=== PATIENT | female | born 1995 ===

== ENCOUNTER 2016-04-11 14:31 | Emergency (ER) | payer MEDICAID, OTHER ==
--- NOTE | 2016-04-11 15:57 | RAD ---
LEFT FINGER 3 VIEWS HISTORY: Dog bite of the left third digit. COMPARISONS: None. TECHNIQUE: Frontal, lateral, and oblique views of the left third digit ALIGNMENT: Grossly unremarkable. FRACTURE: No displaced acute fracture. SOFT TISSUES: Minor soft tissue swelling without obvious soft tissue gas. RADIOOPAQUE FOREIGN BODY: None. IMPRESSION: No gross malalignment or displaced acute fracture noted. Minor soft tissue swelling without obvious soft tissue gas.
== END 2016-04-11 16:06 | disposition home or self-care (01) ==
LOC: ED 14:31
DX: S61.253A Open bite of left middle finger without damage to nail, initial encounter (principal); J45.909 Unspecified asthma, uncomplicated; W54.0XXA Bitten by dog, initial encounter

== ENCOUNTER 2016-07-15 23:43 | Emergency (ER) | payer OTHER ==
[2016-07-16] MEDS ORDERED: IBUPROFEN 600 MG TABLET ONE (02:32)
== END 2016-07-16 02:52 | disposition home or self-care (01) ==
LOC: ED 23:43
DX: R51 Headache (principal); J45.909 Unspecified asthma, uncomplicated; V43.52XA Car driver injured in collision with other type car in traffic accident, initial encounter; Y92.411 Interstate highway as the place of occurrence of the external cause